=== PATIENT | male | born 1990 | race African-American/Black ===

== ENCOUNTER 2021-02-02 19:21 | Emergency (ER) | payer SELFPAY ==
[~2021-02-02] VITALS: Ht 175.3 cm; Wt 72.2 kg
[2021-02-02 19:57] VITALS: BP 115/79
[2021-02-02] MEDS ORDERED: CYCL10TA2 PO (20:26)
[2021-02-02] MEDS ORDERED: DICL50TA2 PO (20:26)
[2021-02-02] MEDS ORDERED: METH4TAB2 PO (20:26)
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
== END 2021-02-02 20:39 | disposition home or self-care (01) ==
LOC: ER 19:21
DX: M79.10 Myalgia, unspecified site (principal); G89.11 Acute pain due to trauma; V49.49XA Driver injured in collision with other motor vehicles in traffic accident, initial encounter; Y92.488 Other paved roadways as the place of occurrence of the external cause; Y93.89 Activity, other specified; Y99.8 Other external cause status
CPT/HCPCS: 99283